=== PATIENT | male | born 1980 | race Caucasian/White ===

== ENCOUNTER 2020-03-24 21:52 | Inpatient (IN) | payer OTHER ==
[2020-03-24 23:08] LABS: BLOOD UREA NITROGEN,BUN 3 mg/dL (7.0-18.0); CARBON DIOXIDE,CO2 31.1 mmol/L (21.0-32.0); CHLORIDE,CL 94 mmol/L (98-107); GLUCOSE RANDOM 148 mg/dL (74-106); POTASSIUM,K 3.8 mmol/L (3.5-5.1); SODIUM,NA 133 mmol/L (136-148)
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
[2020-03-25] MEDS ORDERED: cefTRIAXone 1 GM in Sodium Chloride 0.9% 50 ML IV ONE (00:26)
[2020-03-25] MEDS ORDERED: Azithromycin 250 MG Tab PO STA (00:27)
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
[2020-03-25] MEDS ORDERED: cefTRIAXone 1 GM in Premix Bag 1 BAG IV ONE ×2 (00:48→01:01)
[2020-03-25] MEDS ORDERED: Ondansetron 4 MG/2 ML SDV IVPUSH ONE (01:34)
[2020-03-25] MEDS ORDERED: Morphine 10 MG/ML Syringe IVPUSH ONE (01:34)
[2020-03-25] MEDS ORDERED: Sodium Chloride 0.9% 1,000 ML IV ONE (01:45)
[2020-03-25] MEDS ORDERED: Sodium Chloride 0.9% 250 ML IV SCH (01:45)
[2020-03-25] MEDS ORDERED: Morphine 2 MG/ML Syringe IVPUSH PRN (02:28)
[2020-03-25] MEDS: Sodium Chloride 0.9% 1,000 ML IV SCH ×2 (02:41→15:58)
[2020-03-25] MEDS: Acetaminophen 325 MG Tab PO PRN ×2 (02:46→06:34)
[2020-03-25 06:41] LABS: HEMOGLOBIN A1C 5.2 % (4.5-6.2)
[2020-03-25 06:46] LABS: BLOOD UREA NITROGEN,BUN 3 mg/dL (7.0-18.0); CARBON DIOXIDE,CO2 30.8 mmol/L (21.0-32.0); CHLORIDE,CL 100 mmol/L (98-107); GLUCOSE RANDOM 119 mg/dL (74-106); POTASSIUM,K 4.1 mmol/L (3.5-5.1); SODIUM,NA 137 mmol/L (136-148)
[2020-03-25] MEDS ORDERED: Albuterol/Ipratropium 3.0-0.5 MG/3 ML Neb Soln NEB PRN (07:24)
[2020-03-25] MEDS ORDERED: Magnesium Sulfate/Water 2 GM in Premix Bag 1 BAG IV ONE (07:24)
[2020-03-25] MEDS ORDERED: Ketorolac 30 MG/ML SDV IVPUSH ONE (08:17)
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
[2020-03-25] MEDS ORDERED: LORazepam 2 MG/ML SDV IVPUSH PRN (08:45)
[2020-03-25] MEDS ORDERED: Enoxaparin 40 MG/0.4 ML Syringe SUBCUT SCH (11:30)
[2020-03-25] MEDS: Folic Acid 1 MG Tab PO SCH (11:31)
[2020-03-25] MEDS: Ketorolac 30 MG/ML SDV IVPUSH PRN ×2 (15:53→22:29)
[2020-03-25] MEDS: Thiamine 100 MG Tab PO SCH (20:36)
[2020-03-25] MEDS ORDERED: Azithromycin 500 MG in Sodium Chloride 0.9% 250 ML IV SCH (21:00)
[2020-03-25] MEDS ORDERED: cefTRIAXone 1 GM in Sodium Chloride 0.9% 50 ML IV SCH (22:00)
[2020-03-25] MEDS ORDERED: cefTRIAXone 1 GM in Premix Bag 1 BAG IV SCH (22:00)
[2020-03-26] MEDS: Sodium Chloride 0.9% 1,000 ML IV SCH ×3 (02:52→19:14)
[2020-03-26] MEDS: Ketorolac 30 MG/ML SDV IVPUSH PRN ×4 (04:49→22:56)
[2020-03-26 06:27] LABS: BLOOD UREA NITROGEN,BUN 4 mg/dL (7.0-18.0); CARBON DIOXIDE,CO2 25.3 mmol/L (21.0-32.0); CHLORIDE,CL 102 mmol/L (98-107); GLUCOSE RANDOM 94 mg/dL (74-106); POTASSIUM,K 3.4 mmol/L (3.5-5.1); SODIUM,NA 136 mmol/L (136-148)
[2020-03-26] MEDS ORDERED: diphenhydrAMINE 50 MG/ML SDV IVPUSH ONE (07:37)
[2020-03-26] MEDS: Folic Acid 1 MG Tab PO SCH (08:10)
--- NOTE | 2020-03-26 08:56 | PCM.PN ---
- General Info Date of Service: 03/26/20 Subjective Update: Patient developed hives across low back and down his legs bilaterally. Nursing noticed it, patient stated he didn't feel it, didn't itch or bother him. Was off oxygen this morning, didn't feel short of breath, but still coughing up blood. - Review of Systems General: Reports: No Symptoms HEENT: Reports: No Symptoms Pulmonary: Reports: Pleuritic Chest Pain, Cough, Hemoptysis Cardiovascular: Reports: No Symptoms Gastrointestinal: Reports: No Symptoms Genitourinary: Reports: No Symptoms Musculoskeletal: Reports: No Symptoms Skin: Reports: No Symptoms, Rash Neurological: Reports: No Symptoms Psychiatric: Reports: No Symptoms - Patient Data Vitals - Most Recent: Last Vital Signs Temp 97.2 F 03/26/20 07:00 Pulse 85 03/26/20 07:00 Resp 15 03/26/20 07:00 BP 120/69 03/26/20 07:00 Pulse Ox 93 L 03/26/20 07:30 Weight - Most Recent: 73.391 kg I&O - Last 24 Hours: Intake & Output 03/25/20 03/26/20 03/26/20 22:59 06:59 14:59 Intake Total 2200 1768 Output Total 700 600 Balance 1500 1168 Lab Results Last 24 Hours: Laboratory Results - last 24 hr 03/25/20 03/26/20 03/26/20 Range/Units 16:05 05:16 05:16 WBC 12.54 H (4.0-11.0) K/uL RBC 3.99 L (4.50-5.90) M/uL Hgb 13.0 (13.0-17.0) g/dL Hct 40.7 (38.0-50.0) % MCV 102.0 H (80.0-98.0) fL MCH 32.6 H (27.0-32.0) pg MCHC 31.9 (31.0-37.0) g/dL RDW Std Deviation 55.0 (28.0-62.0) fl RDW Coeff of Tigist 15 (11.0-15.0) % Plt Count 195 (150-400) K/uL MPV 9.80 (7.40-12.00) fL Neut % (Auto) 76.6 (48.0-80.0) % Lymph % (Auto) 10.8 L (16.0-40.0) % [place] % (Auto) 10.5 (0.0-15.0) % Eos % (Auto) 1.9 (0.0-7.0) % Baso % (Auto) 0.2 (0.0-1.5) % Neut # (Auto) 9.6 H (1.4-5.7) K/uL Lymph # (Auto) 1.4 (0.6-2.4) K/uL [place] # (Auto) 1.3 H (0.0-0.8) K/uL Eos # (Auto) 0.2 (0.0-0.7) K/uL Baso # (Auto) 0.0 (0.0-0.1) K/uL Nucleated RBC % 0.0 /100WBC Nucleated RBCs # 0 K/uL Sodium 136 (136-148) mmol/L Potassium 3.4 L (3.5-5.1) mmol/L Chloride 102 (98-107) mmol/L Carbon Dioxide 25.3 (21.0-32.0) mmol/L BUN 4 L (7.0-18.0) mg/dL Creatinine 0.7 L (0.8-1.3) mg/dL Est Cr Clr Drug Dosing 145.62 mL/min Estimated GFR (MDRD) > 60.0 ml/min Glucose 94 (74-106) mg/dL Calcium 7.5 L (8.5-10.1) mg/dL Magnesium 1.8 (1.8-2.4) mg/dL Urine Color YELLOW Urine Appearance HAZY Urine pH 6.5 (5.0-8.0) Ur Specific [place] 1.020 (1.001-1.035) Urine Protein NEGATIVE (NEGATIVE) mg/dL Urine Glucose (UA) NEGATIVE (NEGATIVE) mg/dL Urine Ketones NEGATIVE (NEGATIVE) mg/dL Urine Occult Blood MODERATE H (NEGATIVE) Urine Nitrite NEGATIVE (NEGATIVE) Urine Bilirubin NEGATIVE (NEGATIVE) Urine Urobilinogen 2.0 H (<2.0) EU/dL Ur Leukocyte Esterase NEGATIVE (NEGATIVE) Urine RBC 4-8 (0-2/HPF) Urine WBC 0-3 (0-5/HPF) Ur Epithelial Cells RARE (NONE-FEW) Urine Bacteria RARE (NEGATIVE) [place] Results Last 24 Hours: Microbiology 03/25/20 00:50 Aerobic Blood Culture - Preliminary Blood - Venous - Lab Draw NO GROWTH AFTER 1 DAY Anaerobic Blood Culture - Final 03/25/20 00:40 Aerobic Blood Culture - Preliminary Blood - Venous NO GROWTH AFTER 1 DAY Anaerobic Blood Culture - Preliminary NO GROWTH AFTER 1 DAY 03/25/20 16:02 Gram Stain - Final Sputum - Expectorated Med Orders - Current: Current Medications Acetaminophen (Tylenol) 650 mg PO Q4H PRN PRN Reason: Pain/Fever Last Admin: 03/25/20 06:34 Dose: 650 mg Albuterol/Ipratropium (Duoneb 3.0-0.5 Mg/3 Ml) 3 ml NEB Q4HRRT PRN PRN Reason: Shortness of Breath Folic Acid (Folic Acid) 1 mg PO DAILY [facility] Last Admin: 03/26/20 08:10 Dose: 1 mg Azithromycin 500 mg/ Sodium (Chloride) 250 mls @ 250 mls/hr IV Q24H [facility] Last Admin: 03/25/20 20:36 Dose: 250 mls/hr Sodium Chloride (Normal Saline) 1,000 mls @ 125 mls/hr IV ASDIRECTED [facility] Last Admin: 03/26/20 02:52 Dose: 125 mls/hr Ceftriaxone Sodium/Dextrose 1 (gm/ Premix) 50 mls @ 100 mls/hr IV Q24H [facility] Last Admin: 03/25/20 22:18 Dose: 100 mls/hr Ketorolac Tromethamine (Toradol) 30 mg IVPUSH Q6H PRN PRN Reason: Pain Stop: 03/30/20 11:17 Last Admin: 03/26/20 04:49 Dose: 30 mg Lorazepam (Ativan) 0 mg IVPUSH Q4H PRN; Protocol PRN Reason: Withdrawal Symptoms Morphine Sulfate (Morphine) 2 mg IVPUSH Q4H PRN PRN Reason: Pain (severe 7-10) Last Admin: 03/25/20 05:32 Dose: 2 mg Thiamine HCl (Vitamin B-1) 100 mg PO BEDTIME [facility] Last Admin: 03/25/20 20:36 Dose: 100 mg Discontinued Medications Azithromycin (Zithromax) 500 mg PO NOW STA Stop: 03/25/20 00:28 Last Admin: 03/25/20 01:02 Dose: 500 mg Diphenhydramine HCl (Benadryl) 25 mg IVPUSH ONETIME ONE Stop: 03/26/20 07:38 Last Admin: 03/26/20 08:10 Dose: 25 mg Enoxaparin Sodium (Lovenox) 40 mg SUBCUT Q24H [facility] Last Admin: 03/25/20 12:31 Dose: 40 mg Ceftriaxone Sodium/Dextrose 1 (gm/ Premix) 50 mls @ 100 mls/hr IV ONETIME ONE Stop: 03/25/20 01:30 Last Admin: 03/25/20 01:03 Dose: 100 mls/hr Sodium Chloride (Normal Saline) 1,000 mls @ 999 mls/hr IV .Bolus ONE Stop: 03/25/20 02:45 Last Admin: 03/25/20 01:46 Dose: 999 mls/hr Ceftriaxone Sodium 1 gm/ (Sodium Chloride) 50 mls @ 100 mls/hr IV Q24H [facility] Magnesium Sulfate 2 gm/ Premix 50 mls @ 50 mls/hr IV ONETIME ONE Stop: 03/25/20 08:23 Last Admin: 03/25/20 08:16 Dose: 50 mls/hr Ketorolac Tromethamine (Toradol) 30 mg IVPUSH ONETIME ONE Stop: 03/25/20 08:18 Last Admin: 03/25/20 09:48 Dose: 30 mg Morphine Sulfate (Morphine) 6 mg IVPUSH ONETIME ONE Stop: 03/25/20 01:35 Last Admin: 03/25/20 01:43 Dose: 6 mg Ondansetron HCl (Zofran) 4 mg IVPUSH ONETIME ONE Stop: 03/25/20 01:35 Last Admin: 03/25/20 01:43 Dose: 4 mg - Exam General: Alert, Oriented, Cooperative Lungs: Clear to Auscultation, Normal Respiratory Effort Cardiovascular: Regular Rate, Regular Rhythm GI/Abdominal Exam: Normal Bowel Sounds, Soft, Non-Tender Extremities: No Pedal Edema Skin: Warm, Other (hives across lower back and down legs) Neurological: No New Focal Deficit Psy/Mental Status: Alert, Normal Affect, Normal Mood Sepsis Event Note - Evaluation Sepsis Screening Result: No Definite Risk - Focused Exam Vital Signs: Vital Signs Temp Pulse Resp BP Pulse Ox 03/26/20 07:30 93 L 03/26/20 07:00 97.2 F 85 15 120/69 96 03/26/20 04:00 98.3 F 88 18 142/65 H 95 03/26/20 00:00 97.3 F 89 16 114/66 93 L Date Exam was Performed: 03/26/20 Time Exam was Performed: 12:32 - Problem List Review Problem List Initiated/Reviewed/Updated: Yes - My Orders Last 24 Hours: My Active Orders 03/25/20 08:45 CIWAA Assessment [RC] ASDIRECTED LORazepam [Ativan] See Protocol IVPUSH Q4H PRN 03/25/20 11:17 Ketorolac [Toradol] 30 mg IVPUSH Q6H PRN 03/25/20 13:19 Forensic Analyst Discontinue [Cardiac Monitoring Discontinue] [RC] Click to Edit 03/25/20 16:02 CULTURE SPUTUM + SMEAR [RM] Routine - Plan Plan:: 7. Acute hypoxic respiratory failure secondary to Community acquired pneumonia with new onset hemoptysis- off oxygen and satting well on RA, no major change in white count, with new onset hemoptysis. Will continue with Azithromycin and Rocephin. Duonebs prn. Encourage IS. Blood cultures negative Sputum culture pending. Obtained CTA which showed PE without heart strain and multifocal pneumonia. Will start on heparin drip and switch status to inpatient. 2 .Urticaria- Benadryl given 3. Hypomagnesemia- resolved 4. Tobacco and alcohol use- nicotine patch and continue on CIWAA/Ativan protocol. Start thiamine and folic acid.
[2020-03-26] MEDS: Levofloxacin 250 MG Tab PO SCH (10:39)
--- NOTE | 2020-03-26 11:24 | PCM.DCSUM1 ---
Discharge Summary - Hospital Course HPI Initial Comments: Admission Date: 03/24/20 Discharge Date: 03/26/20 Admission Diagnosis: 1. Acute hypoxic respiratory failure secondary to community acquired pneumonia 2. Tachycardia 3. Hypomagnesemia 4. Tobacco and alcohol use Discharge Diagnosis: 1. Acute hypoxic respiratory failure secondary to community acquired pneumonia - resolved 2. Tachycardia- resolved 3. Hypomagnesemia-resolved 4. Tobacco and alcohol use Procedures: None Consults: None Hospital Course: The patient is a 39 year old male who presented to the ER with increasing shortness of breath, cough and fever. Smokes one pack a day and has 2 -3 hard liquor drinks a night. 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 In the ER, workup revealed leukocytosis of 12.5 but lactate wnl and negative COVID test. CXR revealed lateral left infiltrate. He was tachycardic in the ER but not hypoxic. He was given fluid bolus and started on IV antibiotics- Rocephin and Azithromycin. He was admitted to the medical floor. He became hypoxic to 88% on room air, he was placed on 1 L of oxygen and it improved to 93%. As he improved he was able to be weaned off oxygen. He was treated with Azithromycin and Rocephin, duonebs, and incentive spirometry. He did developed urticaria and his antibiotics were switched to Levaquin. He did have some hemoptysis so CTA was obtained. It showed . Blood cultures were negative. His magnesium was replaced and his level corrected. He initially had tachycardia that resolved. He was monitored on telemetry without any significant events. For his alcohol use he was placed on CIWAA/Ativan protocol but did not require any treatment for withdrawal. By day of discharge, symptoms had improved, he was satting well on room air, and was requesting discharge. Disposition: Home Discharge Condition: vitals stable, tolerating oral diet, ambulating without difficulty, symptom improvement Discharge Instructions: regular diet as tolerated, avoid alcohol activity as tolerated, take medications as prescribed. Symptoms to report to physician include fever/chills, chest pain, shortness of breath, coughing up large amounts of blood,abdominal pain, erythema, drainage/discharge, or not improving as expected. Discharge Medications: Follow-up: - Discharge Data Discharge Disposition: Home, Self-Care 01 Condition: Fair - Referral to Home Health Primary Care Physician: PCP None - Patient Instructions Diet: Usual Diet as Tolerated, No Alcoholic Beverages Activity: As Tolerated Showering/Bathing: May Shower Notify Provider of: Fever, Increased Pain, Swelling and Redness, Drainage, Nausea and/or Vomiting Other/Special Instructions: Additional symptoms include chest pain, shortness of breath, coughing up large amounts of blood, or abdominal pain. - Discharge Plan *PRESCRIPTION DRUG MONITORING PROGRAM REVIEWED*: No *COPY OF PRESCRIPTION DRUG MONITORING REPORT IN PATIENT NIMA: No Prescriptions/Med Rec: Folic Acid 1 mg PO DAILY 14 Days #14 tablet levoFLOXacin [Levaquin] 750 mg PO Q24H 7 Days #7 tablet Thiamine [Vitamin B-1] 100 mg PO BEDTIME 14 Days #14 tablet Home Medications: Home Meds Folic Acid 1 mg PO DAILY 14 Days #14 tablet 03/26/20 [Rx] Thiamine [Vitamin B-1] 100 mg PO BEDTIME 14 Days #14 tablet 03/26/20 [Rx] levoFLOXacin [Levaquin] 750 mg PO Q24H 7 Days #7 tablet 03/26/20 [Rx] Patient Handouts: Steps to Quit Smoking, [id number], Alcohol Use Disorder, Coping with Quitting Smoking, Community-Acquired Pneumonia, Adult, [id number] Referrals: Hi Byers MD [Physician] - 04/09/20 10:45 am - Patient Data Vitals - Most Recent: Last Vital Signs Temp 97.2 F 03/26/20 07:00 Pulse 85 03/26/20 07:00 Resp 15 03/26/20 07:00 BP 120/69 03/26/20 07:00 Pulse Ox 93 L 03/26/20 07:30 Weight - Most Recent: 73.391 kg I&O - Last 24 hours: Intake & Output 03/25/20 03/26/20 03/26/20 22:59 06:59 14:59 Intake Total 2200 1768 Output Total 700 600 Balance 1500 1168 Lab Results - Last 24 hrs: Laboratory Results - last 24 hr 03/25/20 03/26/20 03/26/20 Range/Units 16:05 05:16 05:16 WBC 12.54 H (4.0-11.0) K/uL RBC 3.99 L (4.50-5.90) M/uL Hgb 13.0 (13.0-17.0) g/dL Hct 40.7 (38.0-50.0) % MCV 102.0 H (80.0-98.0) fL MCH 32.6 H (27.0-32.0) pg MCHC 31.9 (31.0-37.0) g/dL RDW Std Deviation 55.0 (28.0-62.0) fl RDW Coeff of Tigist 15 (11.0-15.0) % Plt Count 195 (150-400) K/uL MPV 9.80 (7.40-12.00) fL Neut % (Auto) 76.6 (48.0-80.0) % Lymph % (Auto) 10.8 L (16.0-40.0) % [place] % (Auto) 10.5 (0.0-15.0) % Eos % (Auto) 1.9 (0.0-7.0) % Baso % (Auto) 0.2 (0.0-1.5) % Neut # (Auto) 9.6 H (1.4-5.7) K/uL Lymph # (Auto) 1.4 (0.6-2.4) K/uL [place] # (Auto) 1.3 H (0.0-0.8) K/uL Eos # (Auto) 0.2 (0.0-0.7) K/uL Baso # (Auto) 0.0 (0.0-0.1) K/uL Nucleated RBC % 0.0 /100WBC Nucleated RBCs # 0 K/uL Sodium 136 (136-148) mmol/L Potassium 3.4 L (3.5-5.1) mmol/L Chloride 102 (98-107) mmol/L Carbon Dioxide 25.3 (21.0-32.0) mmol/L BUN 4 L (7.0-18.0) mg/dL Creatinine 0.7 L (0.8-1.3) mg/dL Est Cr Clr Drug Dosing 145.62 mL/min Estimated GFR (MDRD) > 60.0 ml/min Glucose 94 (74-106) mg/dL Calcium 7.5 L (8.5-10.1) mg/dL Magnesium 1.8 (1.8-2.4) mg/dL Urine Color YELLOW Urine Appearance HAZY Urine pH 6.5 (5.0-8.0) Ur Specific [place] 1.020 (1.001-1.035) Urine Protein NEGATIVE (NEGATIVE) mg/dL Urine Glucose (UA) NEGATIVE (NEGATIVE) mg/dL Urine Ketones NEGATIVE (NEGATIVE) mg/dL Urine Occult Blood MODERATE H (NEGATIVE) Urine Nitrite NEGATIVE (NEGATIVE) Urine Bilirubin NEGATIVE (NEGATIVE) Urine Urobilinogen 2.0 H (<2.0) EU/dL Ur Leukocyte Esterase NEGATIVE (NEGATIVE) Urine RBC 4-8 (0-2/HPF) Urine WBC 0-3 (0-5/HPF) Ur Epithelial Cells RARE (NONE-FEW) Urine Bacteria RARE (NEGATIVE) RAN Results - Last 24 hrs: Microbiology 03/25/20 16:02 Gram Stain - Final Sputum - Expectorated 03/25/20 00:50 Aerobic Blood Culture - Preliminary Blood - Venous - Lab Draw NO GROWTH AFTER 1 DAY Anaerobic Blood Culture - Final 03/25/20 00:40 Aerobic Blood Culture - Preliminary Blood - Venous NO GROWTH AFTER 1 DAY Anaerobic Blood Culture - Preliminary NO GROWTH AFTER 1 DAY Med Orders - Current: Current Medications Acetaminophen (Tylenol) 650 mg PO Q4H PRN PRN Reason: Pain/Fever Last Admin: 03/25/20 06:34 Dose: 650 mg Albuterol/Ipratropium (Duoneb 3.0-0.5 Mg/3 Ml) 3 ml NEB Q4HRRT PRN PRN Reason: Shortness of Breath Folic Acid (Folic Acid) 1 mg PO DAILY [facility] Last Admin: 03/26/20 08:10 Dose: 1 mg Sodium Chloride (Normal Saline) 1,000 mls @ 125 mls/hr IV ASDIRECTED [facility] Last Admin: 03/26/20 10:05 Dose: 125 mls/hr Ketorolac Tromethamine (Toradol) 30 mg IVPUSH Q6H PRN PRN Reason: Pain Stop: 03/30/20 11:17 Last Admin: 03/26/20 10:39 Dose: 30 mg Levofloxacin (Levaquin) 750 mg PO Q24H [facility] Last Admin: 03/26/20 10:39 Dose: 750 mg Lorazepam (Ativan) 0 mg IVPUSH Q4H PRN; Protocol PRN Reason: Withdrawal Symptoms Morphine Sulfate (Morphine) 2 mg IVPUSH Q4H PRN PRN Reason: Pain (severe 7-10) Last Admin: 03/25/20 05:32 Dose: 2 mg Thiamine HCl (Vitamin B-1) 100 mg PO BEDTIME [facility] Last Admin: 03/25/20 20:36 Dose: 100 mg Discontinued Medications Azithromycin (Zithromax) 500 mg PO NOW STA Stop: 03/25/20 00:28 Last Admin: 03/25/20 01:02 Dose: 500 mg Diphenhydramine HCl (Benadryl) 25 mg IVPUSH ONETIME ONE Stop: 03/26/20 07:38 Last Admin: 03/26/20 08:10 Dose: 25 mg Enoxaparin Sodium (Lovenox) 40 mg SUBCUT Q24H [facility] Last Admin: 03/25/20 12:31 Dose: 40 mg Ceftriaxone Sodium/Dextrose 1 (gm/ Premix) 50 mls @ 100 mls/hr IV ONETIME ONE Stop: 03/25/20 01:30 Last Admin: 03/25/20 01:03 Dose: 100 mls/hr Sodium Chloride (Normal Saline) 1,000 mls @ 999 mls/hr IV .Bolus ONE Stop: 03/25/20 02:45 Last Admin: 03/25/20 01:46 Dose: 999 mls/hr Azithromycin 500 mg/ Sodium (Chloride) 250 mls @ 250 mls/hr IV Q24H [facility] Last Admin: 03/25/20 20:36 Dose: 250 mls/hr Ceftriaxone Sodium 1 gm/ (Sodium Chloride) 50 mls @ 100 mls/hr IV Q24H [facility] Magnesium Sulfate 2 gm/ Premix 50 mls @ 50 mls/hr IV ONETIME ONE Stop: 03/25/20 08:23 Last Admin: 03/25/20 08:16 Dose: 50 mls/hr Ceftriaxone Sodium/Dextrose 1 (gm/ Premix) 50 mls @ 100 mls/hr IV Q24H [facility] Last Admin: 03/25/20 22:18 Dose: 100 mls/hr Ketorolac Tromethamine (Toradol) 30 mg IVPUSH ONETIME ONE Stop: 03/25/20 08:18 Last Admin: 03/25/20 09:48 Dose: 30 mg Morphine Sulfate (Morphine) 6 mg IVPUSH ONETIME ONE Stop: 03/25/20 01:35 Last Admin: 03/25/20 01:43 Dose: 6 mg Ondansetron HCl (Zofran) 4 mg IVPUSH ONETIME ONE Stop: 03/25/20 01:35 Last Admin: 03/25/20 01:43 Dose: 4 mg
[2020-03-26] MEDS ORDERED: Iopamidol 755 MG/ML 200 ML Multipack Bottle IVPUSH STA (11:37)
--- NOTE | 2020-03-26 12:17 | CT ---
CT chest Technique: Multiple axial sections were obtained from above the lung apices inferiorly through the lung bases. Intravenous contrast was utilized. Study performed as pulmonary angiogram protocol. Comparison: Prior chest CT study of 10/14/12 Findings: Filling defects are seen within the segmental branches of the left lower lung and within the lingula. Filling defects are seen within the right lower lung within segmental and subsegmental branches. No findings of right ventricular strain is seen at this time. Small mediastinal lymph nodes are seen believed to be within normal limits. Increased density is noted within both lower lungs, worse on the right side. Upper lungs show lesser parenchymal density. Small right-sided pleural effusion and trace left-sided pleural effusion is noted. Impression: 1. Findings of pulmonary embolism which is moderate in severity. No findings of right ventricular strain are seen at this time. 2. Diffuse parenchymal densities within both lung bases as well as lesser change within the upper lungs. Findings appear more prominent than expected for pulmonary infarct and findings most likely represent fairly severe multifocal pneumonia which could be bacterial or viral in etiology. Diagnostic code #5 This report was dictated in MDT
[2020-03-26] MEDS ORDERED: Heparin Sodium 5,000 Units/ML Vial IVPUSH ONE (12:24)
[2020-03-26] MEDS ORDERED: Heparin Sodium 5,000 Units/ML Vial IVPUSH PRN (12:27)
[2020-03-26] MEDS: Heparin Sod,Pork In 0.45% Nacl 25,000 UNIT/500 ML IV.SOLN IV SCH (12:51)
[2020-03-26] MEDS: Nicotine 14 MG/24 Hr Patch TRDERM SCH (13:03)
[2020-03-26] MEDS: Thiamine 100 MG Tab PO SCH (21:08)
[2020-03-27] MEDS: Acetaminophen 325 MG Tab PO PRN (03:31)
[2020-03-27] MEDS: Sodium Chloride 0.9% 1,000 ML IV SCH ×2 (03:33→11:46)
[2020-03-27] MEDS: Ketorolac 30 MG/ML SDV IVPUSH PRN ×2 (05:12→11:36)
[2020-03-27 06:42] LABS: BLOOD UREA NITROGEN,BUN 6 mg/dL (7.0-18.0); CARBON DIOXIDE,CO2 26.1 mmol/L (21.0-32.0); CHLORIDE,CL 104 mmol/L (98-107); GLUCOSE RANDOM 96 mg/dL (74-106); POTASSIUM,K 3.7 mmol/L (3.5-5.1); SODIUM,NA 137 mmol/L (136-148)
[2020-03-27] MEDS: Heparin Sod,Pork In 0.45% Nacl 25,000 UNIT/500 ML IV.SOLN IV SCH (08:58)
[2020-03-27] MEDS: Folic Acid 1 MG Tab PO SCH (09:07)
[2020-03-27] MEDS: Nicotine 14 MG/24 Hr Patch TRDERM SCH (09:11)
[2020-03-27 09:15] VITALS: BP 126/73
[2020-03-27] MEDS: Levofloxacin 250 MG Tab PO SCH (09:30)
[2020-03-27 12:22] VITALS: PULSE 102
--- NOTE | 2020-03-27 12:32 | PCM.DCSUM1 ---
Discharge Summary - Hospital Course HPI Initial Comments: Admission Date: 03/24/20 Discharge Date: 03/27/20 Admission Diagnosis: 1. Acute hypoxic respiratory failure secondary to community acquired pneumonia 2. Tachycardia 3. Hypomagnesemia Discharge Diagnosis: 1. Acute hypoxic respiratory failure secondary to community acquired pneumonia and PE- resolved 2. Tachycardia-resolved 3. Hypomagnesemia-resolved 4. Alcohol and Tobacco use Procedures: None Consults: None Hospital Course: The patient is a 39 year old male who presented to the ER with increasing shortness of breath, cough and fever. Smokes one pack a day and has 2 -3 hard liquor drinks a night. 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 In the ER, workup revealed leukocytosis of 12.5 but lactate wnl and negative COVID test. CXR revealed lateral left infiltrate. He was tachycardic in the ER but not hypoxic. He was given fluid bolus and started on IV antibiotics- Rocephin and Azithromycin. He was admitted to the medical floor. He became hypoxic to 88% on room air, he was placed on 1 L of oxygen and it improved to 93%. As he improved, he was able to be weaned off oxygen. He was treated with Azithromycin and Rocephin, duonebs, and incentive spirometry. He did develop hemoptysis. CTA was obtained and revealed PE without right heart strain and multifocal pneumonia. He was started on Heparin drip and transitioned home on Eliquis. Blood cultures were negative. His magnesium was replaced and his level corrected. He initially had tachycardia that resolved. He was monitored on telemetry without any significant events. For his alcohol use he was placed on CIWAA/Ativan protocol but did not require any treatment for withdrawal. By day of discharge, symptoms had improved, he was satting well on room air at rest and with walking, and felt safe going home. Disposition: Home Discharge Condition: vitals stable, tolerating oral diet, ambulating without difficulty, symptom improvement Discharge Instructions: regular diet as tolerated, avoid alcohol activity as tolerated, take medications as prescribed. Symptoms to report to physician include fever/chills, chest pain, shortness of breath, abdominal pain, erythema , drainage/discharge, or not improving as expected. Discharge Medications: Folic Acid 1 mg PO DAILY Thiamine [Vitamin B-1] 100 mg PO BEDTIME levoFLOXacin [Levaquin] 750 mg PO Q24H Apixaban [Eliquis] 5 mg PO BID - 10 mg BID x 7 days then 5 mg BID Follow-up: PCP- Dr. Byers 04/09/20 - Discharge Data Discharge Date: 03/27/20 Discharge Disposition: Home, Self-Care 01 Condition: Fair - Referral to Home Health Primary Care Physician: PCP None - Patient Instructions Diet: Usual Diet as Tolerated, No Alcoholic Beverages Activity: As Tolerated Showering/Bathing: May Shower Notify Provider of: Fever, Increased Pain, Swelling and Redness, Drainage, Nausea and/or Vomiting Other/Special Instructions: Additional symptoms include chest pain, shortness of breath, coughing up large amounts of blood, or abdominal pain. You will take 10 mg of Eliquis twice a day for seven days and then 5 mg BID from then on. - Discharge Plan *PRESCRIPTION DRUG MONITORING PROGRAM REVIEWED*: No *COPY OF PRESCRIPTION DRUG MONITORING REPORT IN PATIENT NIMA: No Prescriptions/Med Rec: Apixaban [Eliquis] 5 mg PO BID 30 Days #72 tablet Folic Acid 1 mg PO DAILY 14 Days #14 tablet levoFLOXacin [Levaquin] 750 mg PO Q24H 7 Days #7 tablet Thiamine [Vitamin B-1] 100 mg PO BEDTIME 14 Days #14 tablet Home Medications: Home Meds Folic Acid 1 mg PO DAILY 14 Days #14 tablet 03/26/20 [Rx] Thiamine [Vitamin B-1] 100 mg PO BEDTIME 14 Days #14 tablet 03/26/20 [Rx] levoFLOXacin [Levaquin] 750 mg PO Q24H 7 Days #7 tablet 03/26/20 [Rx] Apixaban [Eliquis] 5 mg PO BID 30 Days #72 tablet 03/27/20 [Rx] Patient Handouts: Steps to Quit Smoking, [id number], Thiamine, Vitamin B1 tablets, Levofloxacin tablets, Acetaminophen; Codeine tablets , Apixaban oral tablets, Folic Acid, Vitamin B9 tablets, Community-Acquired Pneumonia, Adult, [id number] Referrals: Hi Byers MD [Physician] - 04/09/20 10:45 am - Discharge Summary/Plan Comment DC Time >30 min.: No - Patient Data Vitals - Most Recent: Last Vital Signs Temp 98.1 F 03/27/20 08:00 Pulse 102 H 03/27/20 12:21 Resp 18 03/27/20 08:00 BP 126/73 03/27/20 08:00 Pulse Ox 93 L 03/27/20 12:21 Weight - Most Recent: 72.2 kg I&O - Last 24 hours: Intake & Output 03/26/20 03/27/20 03/27/20 22:59 06:59 14:59 Intake Total 1886 2737 Output Total 900 2100 Balance 985 637 Lab Results - Last 24 hrs: Laboratory Results - last 24 hr 03/26/20 03/26/20 03/27/20 Range/Units 12:36 18:03 00:28 WBC (4.0-11.0) K/uL RBC (4.50-5.90) M/uL Hgb (13.0-17.0) g/dL Hct (38.0-50.0) % MCV (80.0-98.0) fL MCH (27.0-32.0) pg MCHC (31.0-37.0) g/dL RDW Std Deviation (28.0-62.0) fl RDW Coeff of Tigist (11.0-15.0) % Plt Count (150-400) K/uL MPV (7.40-12.00) fL Neut % (Auto) (48.0-80.0) % Lymph % (Auto) (16.0-40.0) % Perry % (Auto) (0.0-15.0) % Eos % (Auto) (0.0-7.0) % Baso % (Auto) (0.0-1.5) % Neut # (Auto) (1.4-5.7) K/uL Lymph # (Auto) (0.6-2.4) K/uL Perry # (Auto) (0.0-0.8) K/uL Eos # (Auto) (0.0-0.7) K/uL Baso # (Auto) (0.0-0.1) K/uL Nucleated RBC % /100WBC Nucleated RBCs # K/uL APTT 32.2 H 68.3 H 53.4 H (18.6-31.3) SEC Sodium (136-148) mmol/L Potassium (3.5-5.1) mmol/L Chloride (98-107) mmol/L Carbon Dioxide (21.0-32.0) mmol/L BUN (7.0-18.0) mg/dL Creatinine (0.8-1.3) mg/dL Est Cr Clr Drug Dosing mL/min Estimated GFR (MDRD) ml/min Glucose (74-106) mg/dL Calcium (8.5-10.1) mg/dL 03/27/20 03/27/20 03/27/20 Range/Units 06:20 06:20 06:20 WBC 9.64 (4.0-11.0) K/uL RBC 3.60 L (4.50-5.90) M/uL Hgb 11.4 L (13.0-17.0) g/dL Hct 36.8 L (38.0-50.0) % MCV 102.2 H (80.0-98.0) fL MCH 31.7 (27.0-32.0) pg MCHC 31.0 (31.0-37.0) g/dL RDW Std Deviation 57.1 (28.0-62.0) fl RDW Coeff of Tigist 15 (11.0-15.0) % Plt Count 220 (150-400) K/uL MPV 9.10 (7.40-12.00) fL Neut % (Auto) 68.6 (48.0-80.0) % Lymph % (Auto) 17.3 (16.0-40.0) % Perry % (Auto) 11.2 (0.0-15.0) % Eos % (Auto) 2.6 (0.0-7.0) % Baso % (Auto) 0.3 (0.0-1.5) % Neut # (Auto) 6.6 H (1.4-5.7) K/uL Lymph # (Auto) 1.7 (0.6-2.4) K/uL Perry # (Auto) 1.1 H (0.0-0.8) K/uL Eos # (Auto) 0.3 (0.0-0.7) K/uL Baso # (Auto) 0.0 (0.0-0.1) K/uL Nucleated RBC % 0.0 /100WBC Nucleated RBCs # 0 K/uL APTT 49.7 H (18.6-31.3) SEC Sodium 137 (136-148) mmol/L Potassium 3.7 (3.5-5.1) mmol/L Chloride 104 (98-107) mmol/L Carbon Dioxide 26.1 (21.0-32.0) mmol/L BUN 6 L (7.0-18.0) mg/dL Creatinine 0.7 L (0.8-1.3) mg/dL Est Cr Clr Drug Dosing 143.25 mL/min Estimated GFR (MDRD) > 60.0 ml/min Glucose 96 (74-106) mg/dL Calcium 7.9 L (8.5-10.1) mg/dL 03/27/20 Range/Units 11:54 WBC (4.0-11.0) K/uL RBC (4.50-5.90) M/uL Hgb (13.0-17.0) g/dL Hct (38.0-50.0) % MCV (80.0-98.0) fL MCH (27.0-32.0) pg MCHC (31.0-37.0) g/dL RDW Std Deviation (28.0-62.0) fl RDW Coeff of Tigist (11.0-15.0) % Plt Count (150-400) K/uL MPV (7.40-12.00) fL Neut % (Auto) (48.0-80.0) % Lymph % (Auto) (16.0-40.0) % Perry % (Auto) (0.0-15.0) % Eos % (Auto) (0.0-7.0) % Baso % (Auto) (0.0-1.5) % Neut # (Auto) (1.4-5.7) K/uL Lymph # (Auto) (0.6-2.4) K/uL Perry # (Auto) (0.0-0.8) K/uL Eos # (Auto) (0.0-0.7) K/uL Baso # (Auto) (0.0-0.1) K/uL Nucleated RBC % /100WBC Nucleated RBCs # K/uL APTT 43.1 H (18.6-31.3) SEC Sodium (136-148) mmol/L Potassium (3.5-5.1) mmol/L Chloride (98-107) mmol/L Carbon Dioxide (21.0-32.0) mmol/L BUN (7.0-18.0) mg/dL Creatinine (0.8-1.3) mg/dL Est Cr Clr Drug Dosing mL/min Estimated GFR (MDRD) ml/min Glucose (74-106) mg/dL Calcium (8.5-10.1) mg/dL RAN Results - Last 24 hrs: Microbiology 03/25/20 16:02 Gram Stain - Final Sputum - Expectorated Sputum Culture - Final Normal Respiratory Shelly 03/25/20 00:50 Aerobic Blood Culture - Preliminary Blood - Venous - Lab Draw NO GROWTH AFTER 2 DAYS Anaerobic Blood Culture - Final 03/25/20 00:40 Aerobic Blood Culture - Preliminary Blood - Venous NO GROWTH AFTER 2 DAYS Anaerobic Blood Culture - Preliminary NO GROWTH AFTER 2 DAYS Med Orders - Current: Current Medications Acetaminophen (Tylenol) 650 mg PO Q4H PRN PRN Reason: Pain/Fever Last Admin: 03/27/20 03:31 Dose: 650 mg Albuterol/Ipratropium (Duoneb 3.0-0.5 Mg/3 Ml) 3 ml NEB Q4HRRT PRN PRN Reason: Shortness of Breath Folic Acid (Folic Acid) 1 mg PO DAILY [facility] Last Admin: 03/27/20 09:07 Dose: 1 mg Heparin Sodium (Porcine) (Heparin Sodium) 0 units IVPUSH Q6H PRN PRN Reason: PTT results Last Admin: 03/26/20 12:50 Dose: 5,000 units Sodium Chloride (Normal Saline) 1,000 mls @ 125 mls/hr IV ASDIRECTED MARIBEL Last Admin: 03/27/20 11:46 Dose: 125 mls/hr Heparin Sodium/Sodium Chloride (Heparin-1/2ns 25,000 Units/500) 25,000 unit in 500 mls @ 26.421 mls/hr IV TITRATE MARIBEL; Protocol Last Admin: 03/27/20 08:58 Dose: 18 units/kg/hr, 26.421 mls/hr Ketorolac Tromethamine (Toradol) 30 mg IVPUSH Q6H PRN PRN Reason: Pain Stop: 03/30/20 11:17 Last Admin: 05/20/20 11:36 Dose: 30 mg Levofloxacin (Levaquin) 750 mg PO Q24H [facility] Last Admin: 03/27/20 09:30 Dose: 750 mg Lorazepam (Ativan) 0 mg IVPUSH Q4H PRN; Protocol PRN Reason: Withdrawal Symptoms Morphine Sulfate (Morphine) 2 mg IVPUSH Q4H PRN PRN Reason: Pain (severe 7-10) Last Admin: 03/25/20 05:32 Dose: 2 mg Nicotine (Habitrol) 14 mg TRDERM DAILY [facility] Last Admin: 03/27/20 09:11 Dose: 14 mg Thiamine HCl (Vitamin B-1) 100 mg PO BEDTIME [facility] Last Admin: 03/26/20 21:08 Dose: 100 mg Discontinued Medications Azithromycin (Zithromax) 500 mg PO NOW STA Stop: 03/25/20 00:28 Last Admin: 03/25/20 01:02 Dose: 500 mg Diphenhydramine HCl (Benadryl) 25 mg IVPUSH ONETIME ONE Stop: 03/26/20 07:38 Last Admin: 03/26/20 08:10 Dose: 25 mg Enoxaparin Sodium (Lovenox) 40 mg SUBCUT Q24H [facility] Last Admin: 03/25/20 12:31 Dose: 40 mg Heparin Sodium (Porcine) (Heparin Sodium) 5,000 units IVPUSH .BOLUS ONE Stop: 03/26/20 12:25 Last Admin: 03/26/20 12:50 Dose: 5,000 units Ceftriaxone Sodium/Dextrose 1 (gm/ Premix) 50 mls @ 100 mls/hr IV ONETIME ONE Stop: 03/25/20 01:30 Last Admin: 03/25/20 01:03 Dose: 100 mls/hr Sodium Chloride (Normal Saline) 1,000 mls @ 999 mls/hr IV .Bolus ONE Stop: 03/25/20 02:45 Last Admin: 03/25/20 01:46 Dose: 999 mls/hr Azithromycin 500 mg/ Sodium (Chloride) 250 mls @ 250 mls/hr IV Q24H [facility] Last Admin: 03/25/20 20:36 Dose: 250 mls/hr Ceftriaxone Sodium 1 gm/ (Sodium Chloride) 50 mls @ 100 mls/hr IV Q24H [facility] Magnesium Sulfate 2 gm/ Premix 50 mls @ 50 mls/hr IV ONETIME ONE Stop: 03/25/20 08:23 Last Admin: 03/25/20 08:16 Dose: 50 mls/hr Ceftriaxone Sodium/Dextrose 1 (gm/ Premix) 50 mls @ 100 mls/hr IV Q24H [facility]IBEL Last Admin: 03/25/20 22:18 Dose: 100 mls/hr Iopamidol (Isovue Multipack-370 (76%)) 50 ml IVPUSH ONETIME STA Stop: 03/26/20 11:38 Last Admin: 03/26/20 11:40 Dose: 50 ml Ketorolac Tromethamine (Toradol) 30 mg IVPUSH ONETIME ONE Stop: 03/25/20 08:18 Last Admin: 03/25/20 09:48 Dose: 30 mg Morphine Sulfate (Morphine) 6 mg IVPUSH ONETIME ONE Stop: 03/25/20 01:35 Last Admin: 03/25/20 01:43 Dose: 6 mg Ondansetron HCl (Zofran) 4 mg IVPUSH ONETIME ONE Stop: 03/25/20 01:35 Last Admin: 03/25/20 01:43 Dose: 4 mg
== END 2020-03-27 13:50 | disposition home or self-care (01) | DRG 193 ==
LOC: MW.ED 21:52 → MW.MS 03-25 00:35 → OBSVTOIN 03-26 12:31
PROVIDERS: ADMIT Student in an Organized Health Care Education/Training Program; ATTEND Student in an Organized Health Care Education/Training Program
DX: J18.9 Pneumonia, unspecified organism (principal); J96.01 Acute respiratory failure with hypoxia; I26.99 Other pulmonary embolism without acute cor pulmonale; E83.42 Hypomagnesemia; F17.210 Nicotine dependence, cigarettes, uncomplicated; Z88.0 Allergy status to penicillin; L50.9 Urticaria, unspecified; Z72.89 Other problems related to lifestyle; Z20.828 Contact with and (suspected) exposure to other viral communicable diseases
CPT/HCPCS: 36415; 71045; 71045-26; 71275; 71275-26; 80048; 80053; 81001; 83036; 83605; 83735; 84100; 84443; 84484; 85025; 85730; 87040; 87070; 87205; 93005; 96365; 99283; 99285-25; A9270-GY; J0456; J0696; J1200; J1644; J1650; J1885; J2270; J2405; J3475; J7030; J7050; Q9967; U0002

== ENCOUNTER 2020-05-31 02:08 | Emergency (ER) | payer SELFPAY ==
[2020-05-31 02:15] VITALS: BP 143/94; PULSE 99
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
== END 2020-05-31 02:50 ==
LOC: MW.ED 02:08
DX: F10.129 Alcohol abuse with intoxication, unspecified (principal); Z88.0 Allergy status to penicillin
CPT/HCPCS: 99282; 99284

== ENCOUNTER 2020-11-02 21:13 | Emergency (ER) | payer SELFPAY ==
[2020-11-02 21:24] VITALS: BP 130/76; PULSE 120
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
== END 2020-11-02 21:45 | disposition left against medical advice (07) ==
LOC: MW.ED 21:13
DX: Z53.21 Procedure and treatment not carried out due to patient leaving prior to being seen by health care provider (principal)

== ENCOUNTER 2021-12-10 13:42 | Emergency (ER) | payer BC ==
[2021-12-10 14:49] VITALS: BP 113/74; PULSE 94
== END 2021-12-10 14:30 | disposition left against medical advice (07) ==
LOC: MW.ED 13:42
DX: R07.9 Chest pain, unspecified (principal); Z88.5 Allergy status to narcotic agent; Z88.0 Allergy status to penicillin; Z53.8 Procedure and treatment not carried out for other reasons
CPT/HCPCS: 36415; 93005; 99285-25

== ENCOUNTER 2022-04-21 17:06 | Emergency (ER) | payer BC ==
[2022-04-21] MEDS ORDERED: Sodium Chloride 0.9% 1,000 ML IV ONE (17:50)
[2022-04-21] MEDS ORDERED: Ondansetron 4 MG/2 ML SDV IVPUSH ONE (17:50)
[2022-04-21] MEDS ORDERED: HYDROmorphone 1 MG/ML Syringe IVPUSH ONE (17:53)
[2022-04-21 18:56] LABS: CARBON DIOXIDE,CO2 29.5 mmol/L (21.0-32.0)
[2022-04-21] MEDS ORDERED: Potassium Chloride 10% 20 MEQ/15 ML Soln 30 ML UD Cup PO ONE (19:11)
[2022-04-21] MEDS ORDERED: Sodium Chloride 0.9% 1,000 ML IV SCH (19:15)
[2022-04-21 22:53] VITALS: BP 108/80; PULSE 77
== END 2022-04-21 23:00 | disposition home or self-care (01) ==
LOC: MW.ED 17:06
DX: F10.920 Alcohol use, unspecified with intoxication, uncomplicated (principal); K70.10 Alcoholic hepatitis without ascites; S20.211A Contusion of right front wall of thorax, initial encounter; M25.511 Pain in right shoulder; Z72.0 Tobacco use; Z88.0 Allergy status to penicillin; Z88.8 Allergy status to other drugs, medicaments and biological substances; W18.30XA Fall on same level, unspecified, initial encounter
CPT/HCPCS: 36415; 70450; 71045; 71275; 73030; 80053; 80307; 83690; 83735; 84484; 85025; 85610; 85730; 87635; 93005; 96374; 96375; 99285; A9270; J1170; J2405; J7030; U0002

== ENCOUNTER 2024-12-10 02:20 | Emergency (ER) | payer MEDICAID ==
[2024-12-10 02:35] VITALS: BP 98/61; PULSE 90
[2024-12-10] MEDS ORDERED: Sodium Chloride 0.9% 2.5 ML Syringe FLUSH PRN (02:45)
[2024-12-10] MEDS ORDERED: Sodium Chloride 0.9% 10 ML Syringe FLUSH PRN (02:45)
[2024-12-10 03:08] LABS: BASOPHILS ABSOLUTE AUTO 0.04 K/uL (0.00-0.20); BASOPHILS PERCENT AUTO 0.6 % (0.0-1.0); EOSINOPHILS ABSOLUTE AUTO 0.19 K/uL (0.00-0.45); EOSINOPHILS PERCENT AUTO 2.9 % (0.0-6.0); HEMATOCRIT 43.9 % (42.0-52.0); HEMOGLOBIN 15.2 g/dL (14.0-18.0); IMMATURE GRAN ABSOLUTE AUTO 0.01 K/uL (0.00-0.05); IMMATURE GRAN PERCENT AUTO 0.2 % (0.0-0.4); LYMPHOCYTES ABSOLUTE AUTO 3.29 K/uL (1.00-4.80); LYMPHOCYTES PERCENT AUTO 49.9 % (24.0-44.0); MEAN CORPUSCULAR HGB CONC 34.6 g/dL (32.0-36.0); MEAN CORPUSCULAR VOLUME 98.2 fL (83.0-99.0); MEAN PLATELET VOLUME 9.5 fL (9.4-12.4); MONOCYTES ABSOLUTE AUTO 0.69 K/uL (0.00-0.80); MONOCYTES PERCENT AUTO 10.5 % (0.0-8.0); NEUTROPHILS ABSOLUTE AUTO 2.37 K/uL (1.80-7.70); NEUTROPHILS PERCENT AUTO 35.9 % (41.0-71.0); PLATELET COUNT,PLT 174 K/uL (150-400); RED BLOOD CELL COUNT 4.47 M/uL (4.52-5.90); WHITE BLOOD CELL COUNT,WBC 6.59 K/uL (3.9-11.3)
[2024-12-10 03:39] LABS: A/G RATIO 0.8 (0.9-1.6); ALANINE AMINOTRANSFERASE,ALT 48 IU/L (14-63); ALKALINE PHOSPHATASE 109 U/L (46-116); ASPARTATE AMNIOTRANSFERASE,AST 50 IU/L (15-37); BILIRUBIN TOTAL 0.4 mg/dL (0.2-1.0); CALCIUM 8.3 mg/dL (8.5-10.1); CARBON DIOXIDE,CO2 27.4 mmol/L (21.0-32.0); CHLORIDE,CL 106 mmol/L (98-107); CREATININE 0.7 mg/dL (0.8-1.3); EST CRCL DRUG DOSING (CG) 145.35 mL/min; ETHANOL BLOOD MEDICAL 293 mg/dL; GLUCOSE RANDOM 106 mg/dL (74-106); POTASSIUM,K 4.3 mmol/L (3.5-5.1); PROTEIN TOTAL,TP 6.9 g/dL (6.4-8.2); SODIUM,NA 143 mmol/L (136-148)
[2024-12-10 03:45] LABS: ESTIMATED GFR 116 mL/min (>60)
[2024-12-10 03:51] LABS: BLOOD UREA NITROGEN,BUN 0 mg/dL (7.0-18.0)
== END 2024-12-10 04:17 | disposition home or self-care (01) ==
LOC: MW.ED 02:20
DX: R09.1 Pleurisy (principal); F10.129 Alcohol abuse with intoxication, unspecified; Z88.0 Allergy status to penicillin; Z88.5 Allergy status to narcotic agent; Z88.8 Allergy status to other drugs, medicaments and biological substances; Z75.8 Other problems related to medical facilities and other health care; Y90.8 Blood alcohol level of 240 mg/100 ml or more
CPT/HCPCS: 36415; 71045; 71045-26; 80053; 80307; 84484; 85025; 93005; 99285

== ENCOUNTER 2025-05-21 10:14 | Emergency (ER) | payer MEDICAID ==
[2025-05-21 11:04] VITALS: BP 116/75; PULSE 93
== END 2025-05-21 13:07 | disposition home or self-care (01) ==
LOC: MW.ED 10:14
DX: S92.321A Displaced fracture of second metatarsal bone, right foot, initial encounter for closed fracture (principal); S92.331A Displaced fracture of third metatarsal bone, right foot, initial encounter for closed fracture; Z75.3 Unavailability and inaccessibility of health-care facilities; Z88.0 Allergy status to penicillin; Z88.5 Allergy status to narcotic agent; Z88.8 Allergy status to other drugs, medicaments and biological substances; Z79.899 Other long term (current) drug therapy; W18.42XA Slipping, tripping and stumbling without falling due to stepping into hole or opening, initial encounter
CPT/HCPCS: 70450; 70450-26; 73630-26-RT; 73630-RT; 99284